=== PATIENT | female | born 2000 | race Caucasian/White ===

== ENCOUNTER 2022-05-01 10:21 | Emergency (ER) | payer OTHER ==
[2022-05-01 10:44] VITALS: BP 141/94
[2022-05-01] MEDS ORDERED: ONDANSETRON ODT 4 MG TABLET TL STA (11:27)
[2022-05-01] MEDS ORDERED: ACETAMINOPHEN 325 MG TABLET PO STA (11:35)
--- NOTE | 2022-05-01 11:46 | ED Physician Documentation ---
PD HPI URI - Stated complaint Stated Complaint: FEVER/VOMITING/HEAD PX - Chief complaint Chief Complaint: Resp - History obtained from History obtained from: Patient - History of Present Illness Timing - onset: How many days ago (2) Timing duration: Days (2) Timing details: Gradual onset Pain level max: 5 Pain level now: 5 Associated symptoms: Fever, Chills, Nasal congestion, Rhinorrhea, Dry cough Contributing factors: Sick contact (Has been sick with same) - Additional information Additional information: 21-year-old female has been sick for the past 2 to 3 days. She states that she has had fever, cough, congestion as well as vomiting. Unable to tolerate p.o. at home. Has a headache as well. has been sick with same. No urinary symptoms. Denies any possibility of . Taking NyQuil at home. Review of Systems Ten Systems: 10 systems reviewed and negative Constitutional: reports: Fever, Chills Respiratory: reports: Cough GI: reports: Nausea, Vomiting. denies: Abdominal Pain, Diarrhea, Hematemesis, Bloody / black stool : denies: Dysuria, Frequency, Hesitancy, Now EGA Skin: denies: Rash Musculoskeletal: denies: Neck pain, Back pain Neurologic: reports: Headache (Gradual onset, holoacranial) PD PAST MEDICAL HISTORY - Past Medical History Past Medical History: No - Past Surgical History Past Surgical History: No - Present Medications Home Medications: Ambulatory Orders Medication Instructions Recorded Confirmed Ondansetron Odt [Zofran] 4 mg TL Q6H PRN #10 tablet 05/01/22 Promethazine [Phenergan] 25 mg PO Q6H PRN #10 tab 05/01/22 - Allergies Allergies/Adverse Reactions: Allergies Allergy/AdvReac Type Severity Reaction Status Date / Time No Known Drug Allergies Allergy Verified 05/01/22 10:44 - Social History Does the pt smoke?: No Does the pt have substance abuse?: No - Family History Family history: reports: Non contributory PD ED PE NORMAL - Vitals Vital signs reviewed: Yes - General General: Alert and oriented X 3, No acute distress, Well developed/nourished - HEENT HEENT: Ears normal, Moist mucous membranes, Pharynx benign - Neck Neck: Supple, no meningeal sign - Cardiac Cardiac: RRR, Strong equal pulses - Respiratory Respiratory: No respiratory distress, Clear bilaterally - Abdomen Abdomen: Soft, Non tender, Non distended - Back Back: No CVA TTP, No spinal TTP - Derm Derm: Warm and dry, No rash - Extremities Extremities: No edema - Neuro Neuro: Alert and oriented X 3 - Psych Psych: Normal mood, Normal affect Results - Vitals Vitals: Vital Signs - 24 hr 05/01/22 10:40 Temperature 36.2 C L Heart Rate 127 H Respiratory 18 Rate Blood Pressure 141/94 H O2 Saturation 96 Oxygen O2 Source Room air - Labs Labs: Laboratory Tests 05/01/22 10:44 Nasal Adenovirus (PCR) NOT DETECTED Nasal B. parapertussis DNA (PCR) NOT DETECTED Nasal Coronavir 229E PCR NOT DETECTED Nasal Coronavir HKU1 PCR NOT DETECTED Nasal Coronavir NL63 PCR NOT DETECTED Nasal Coronavir OC43 PCR NOT DETECTED Nasal Enterovir/Rhinovir PCR NOT DETECTED Nasal Influenza A H3 PCR DETECTED A Nasal Influenza B PCR NOT DETECTED Nasal Parainfluen 1 PCR NOT DETECTED Nasal Parainfluen 2 PCR NOT DETECTED Nasal Parainfluen 3 PCR NOT DETECTED Nasal Parainfluen 4 PCR NOT DETECTED Nasal RSV (PCR) NOT DETECTED Nasal B.pertussis DNA PCR NOT DETECTED Nasal C.pneumoniae (PCR) NOT DETECTED Kit Human Metapneumo PCR NOT DETECTED Nasal M.pneumoniae (PCR) NOT DETECTED Nasal SARS-CoV-2 (PCR) NOT DETECTED PD MEDICAL DECISION MAKING - ED course Complexity details: reviewed results, re-evaluated patient, considered differential, d/w patient ED course: 21-year-old female presents to the emergency department with cough, congestion, body aches and fever. Has nausea and vomiting as well. Positive for influenza A. Partner sick with same. Given Zofran and is tolerating p.o. without difficulty. Patient is well-appearing, nontoxic. We will continue supportive care. Patient has been sick with symptoms greater than 48 hours, therefore not a candidate for Tamiflu or Xofluza Patient counseled regarding signs and symptoms for which I believe and urgent re-evaluation would be necessary. Patient with good understanding of and agreement to plan and is comfortable going home at this time This document was made in part using voice recognition software. While efforts are made to proofread this document, sound alike and grammatical errors may occur. Departure - Departure Disposition: 01 Home, Self Care Clinical Impression: Influenza A Condition: Good Instructions: ED Flu Follow-Up: Your,doctor in 1 week [Other] Prescriptions: Promethazine [Phenergan] 25 mg PO Q6H PRN #10 tab PRN Reason: Nausea / Vomiting Ondansetron Odt [Zofran] 4 mg TL Q6H PRN #10 tablet PRN Reason: Nausea / Vomiting Comments: Please follow-up with your doctor for further care. You have tested positive for influenza A today. Your prescriptions were sent to [facility] in [place]. Drink plenty of fluids. You can use Motrin or Tylenol as needed for fevers and/or body aches. Forms: Activity restrictions Discharge Date/Time: 05/01/22 12:37
[2022-05-01 11:54] LABS: CORONAVIRUS 229E-RESP PCR NOT DETECTED; CORONAVIRUS HKU1-RESP PCR NOT DETECTED; CORONAVIRUS NL63-RESP PCR NOT DETECTED; CORONAVIRUS OC43-RESP PCR NOT DETECTED; HUMAN METAPNEUMOVIRUS NOT DETECTED; INFLUENZA A H3- RESP PCR PANEL DETECTED; RHINOVIRUS/ENTEROVIRUS NOT DETECTED; SARS-CoV-2 -RESP PCR PANEL NOT DETECTED
[2022-05-01 11:55] LABS: B. PARAPERTUSSIS- RESP PCR PAN NOT DETECTED; B. PERTUSSIS- RESP PCR PANEL NOT DETECTED; C. PNEUMONIAE- RESP PCR PANEL NOT DETECTED; INFLUENZA B - RESP PCR PANEL NOT DETECTED; M. PNEUMONIAE- RESP PCR PANEL NOT DETECTED; PARAINFLUENZA VIRUS 1 NOT DETECTED; PARAINFLUENZA VIRUS 2 NOT DETECTED; PARAINFLUENZA VIRUS 3 NOT DETECTED; PARAINFLUENZA VIRUS 4 NOT DETECTED; RSV- RESP PCR PANEL NOT DETECTED
== END 2022-05-01 12:37 | disposition home or self-care (01) ==
LOC: ED 10:21
DX: J10.1 Influenza due to other identified influenza virus with other respiratory manifestations (principal); Z20.822 Contact with and (suspected) exposure to COVID-19
CPT/HCPCS: 87633; 99282; 99283; A9270; Q0162

== ENCOUNTER 2022-11-24 18:55 | Emergency (ER) | payer OTHER ==
[2022-11-24 19:19] LABS: BASOPHILS % (AUTO) 0.2 %; EOSINOPHILS # (AUTO) 0.1 10^3/uL (0.0-0.7); EOSINOPHILS % (AUTO) 0.8 %; HCT - HEMATOCRIT 40.9 % (37.0-47.0); HGB - HEMOGLOBIN 13.3 g/dL (12.0-16.0); LYMPHOCYTES # (AUTO) 2.2 10^3/uL (1.5-3.5); LYMPHOCYTES % (AUTO) 35.9 %; MEAN CORPUSCULAR HEMOGLOBIN 27.3 pg (27.0-31.0); MEAN CORPUSCULAR HGB CONC 32.5 g/dL (32.0-36.0); MEAN CORPUSCULAR VOLUME 83.8 fL (81.0-99.0); MEAN PLATELET VOLUME 8.9 fL (7.9-10.8); MONOCYTES # (AUTO) 0.8 10^3/uL (0.0-1.0); MONOCYTES % (AUTO) 12.4 %; NEUTROPHILS # (AUTO) 3.1 10^3/uL (1.5-6.6); NEUTROPHILS % (AUTO) 50.2 %; PLT - PLATELET COUNT 317 10^3/uL (130-450); RED BLOOD COUNT 4.88 10^6/uL (4.20-5.40); WHITE BLOOD COUNT 6.1 x10^3/uL (4.8-10.8)
[2022-11-24 19:26] LABS: BILIRUBIN,URINE NEGATIVE (NEGATIVE); GLUCOSE, URINE (UA) NEGATIVE (NEGATIVE); KETONES,URINE (UA) NEGATIVE (NEGATIVE); LEUKOCYTE ESTERASE, URINE SMALL (NEGATIVE); NITRITE,URINE POSITIVE (NEGATIVE); OCCULT BLOOD,URINE SMALL (NEGATIVE); PROTEIN,URINE NEGATIVE (NEGATIVE); UROBILINOGEN,URINE 0.2 (NORMAL) E.U./dL (NORMAL)
[2022-11-24 19:30] LABS: ALBUMIN 3.1 g/dL (3.2-5.5); ALBUMIN/GLOBULIN RATIO 0.8 (1.0-2.2); BILIRUBIN,TOTAL 0.2 mg/dL (0.2-1.0); CALCIUM 8.8 mg/dL (8.5-10.3); CREATININE 0.5 mg/dL (0.4-1.0); POTASSIUM 3.7 mmol/L (3.5-5.0); TOTAL PROTEIN 7.2 g/dL (6.7-8.2)
[2022-11-24 19:31] LABS: CLARITY,URINE HAZY (CLEAR)
[2022-11-24 19:43] LABS: BACTERIA,URINE Moderate /HPF (None Seen); RBC,URINE 0-5 /HPF (0-5); SQUAMOUS EPITHELIAL CELL,UR MANY Squamous (<= Few); YEAST,URINE PRESENT
--- NOTE | 2022-11-24 19:49 | ED Physician Documentation ---
History of Present Illness - Stated complaint Stated Complaint: HEAD PX/FEVER - Chief complaint Chief Complaint: Fever - History obtained from History obtained from: Patient, Family - History of Present Illness Timing: How many days ago (2) Pain level max: 5 Pain level now: 5 - Additonal information Additional information: 22-year-old female approximately 16 weeks presents to the emergency department with 3 days worth of intermittent fevers. Patient states that she has a history of migraines and had a headache earlier that felt like a migraine. Did not resolve with Tylenol. She has not had a cough. The headache was gradual in onset, holoacranial. Similar to prior migraines. No cough. She has had a rhinitis since she became . No urinary symptoms. No vaginal bleeding or discharge. No abdominal pain. Did have emesis x1. She is seen by OB at [facility]. She states that she has had high blood pressure and was supposed to start on a baby aspirin but has not done this yet. Review of Systems Constitutional: reports: Fever Nose: reports: Rhinorrhea / runny nose (Chronic for the past several months) Respiratory: denies: Cough GI: denies: Abdominal Pain, Constipation, Diarrhea : denies: Dysuria, Frequency, Hesitancy Skin: denies: Rash Musculoskeletal: denies: Neck pain, Back pain Neurologic: denies: Focal weakness, Numbness, Confused, LOC PD PAST MEDICAL HISTORY - Past Medical History Past Medical History: Yes Neuro: Migraines - Past Surgical History Past Surgical History: No - Present Medications Home Medications: Ambulatory Orders Medication Instructions Recorded Confirmed Ondansetron Odt [Zofran] 4 mg TL Q6H PRN #10 tablet 05/01/22 Promethazine [Phenergan] 25 mg PO Q6H PRN #10 tab 05/01/22 Cefpodoxime Proxetil [Vantin] 100 mg PO Q12H #20 tablet 11/24/22 Labetalol [Trandate] 100 mg PO BID #60 tablet 11/24/22 - Allergies Allergies/Adverse Reactions: Allergies Allergy/AdvReac Type Severity Reaction Status Date / Time No Known Drug Allergies Allergy Verified 11/24/22 18:58 - Living Situation Living Situation: reports: With family Living Arrangement: reports: At home - Social History Does the pt smoke?: No Does the pt have substance abuse?: No PD ED PE NORMAL - Vitals Vital signs reviewed: Yes - General General: Alert and oriented X 3, No acute distress, Well developed/nourished - HEENT HEENT: PERRL, Ears normal, Moist mucous membranes, Pharynx benign - Neck Neck: Supple, no meningeal sign - Cardiac Cardiac: RRR, Strong equal pulses - Respiratory Respiratory: No respiratory distress, Clear bilaterally - Abdomen Abdomen: Soft, Non tender, Non distended - Back Back: No CVA TTP, No spinal TTP - Derm Derm: Warm and dry, No rash - Extremities Extremities: No edema, No calf tenderness / cord - Neuro Neuro: Alert and oriented X 3 - Psych Psych: Normal mood, Normal affect Results - Vitals Vitals: Vital Signs - 24 hr 11/24/22 11/24/22 11/24/22 18:59 19:26 19:58 Temperature 36.9 C Heart Rate 112 H 97 96 Respiratory 18 16 16 Rate Blood Pressure 146/97 H 130/93 H 134/88 H O2 Saturation 99 100 100 11/24/22 11/24/22 21:35 21:46 Temperature 37.2 C 37.2 C Heart Rate 97 97 Respiratory 16 16 Rate Blood Pressure 138/91 H 138/91 H O2 Saturation 100 100 Oxygen O2 Source Room air - Labs Labs: Laboratory Tests 11/24/22 11/24/22 11/24/22 19:11 19:13 19:13 WBC 6.1 RBC 4.88 Hgb 13.3 Hct 40.9 MCV 83.8 MCH 27.3 MCHC 32.5 RDW 15.0 Plt Count 317 MPV 8.9 Neut # (Auto) 3.1 Lymph # (Auto) 2.2 Fleming # (Auto) 0.8 Eos # (Auto) 0.1 Baso # (Auto) 0.0 Absolute Nucleated RBC 0.00 Nucleated RBC % 0.0 Sodium 133 L Potassium 3.7 Chloride 105 Carbon Dioxide 22 Anion Gap 6.0 BUN 7 Creatinine 0.5 Estimated GFR (MDRD) 153 Glucose 88 Calcium 8.8 Total Bilirubin 0.2 AST 19 ALT 19 Alkaline Phosphatase 53 Total Protein 7.2 Albumin 3.1 L Globulin 4.1 Albumin/Globulin Ratio 0.8 L Urine Color Urine Clarity Urine pH Ur Specific [place] Urine Protein Urine Glucose (UA) Urine Ketones Urine Occult Blood Urine Nitrite Urine Bilirubin Urine Urobilinogen Ur Leukocyte Esterase Urine RBC Urine WBC Ur Squamous Epith Cells Urine Bacteria Urine Yeast Ur Microscopic Review Urine Culture Comments Nasal Adenovirus (PCR) NOT DETECTED Nasal B. parapertussis DNA (PCR) NOT DETECTED Nasal Coronavir 229E PCR NOT DETECTED Nasal Coronavir HKU1 PCR NOT DETECTED Nasal Coronavir NL63 PCR NOT DETECTED Nasal Coronavir OC43 PCR NOT DETECTED Nasal Enterovir/Rhinovir PCR NOT DETECTED Nasal Influenza B PCR NOT DETECTED Nasal Influenza A PCR NOT DETECTED Nasal Parainfluen 1 PCR NOT DETECTED Nasal Parainfluen 2 PCR NOT DETECTED Nasal Parainfluen 3 PCR NOT DETECTED Nasal Parainfluen 4 PCR NOT DETECTED Nasal RSV (PCR) NOT DETECTED Nasal B.pertussis DNA PCR NOT DETECTED Nasal C.pneumoniae (PCR) NOT DETECTED Kit Human Metapneumo PCR NOT DETECTED Nasal M.pneumoniae (PCR) NOT DETECTED Nasal SARS-CoV-2 (PCR) NOT DETECTED 11/24/22 19:13 WBC RBC Hgb Hct MCV MCH MCHC RDW Plt Count MPV Neut # (Auto) Lymph # (Auto) Fleming # (Auto) Eos # (Auto) Baso # (Auto) Absolute Nucleated RBC Nucleated RBC % Sodium Potassium Chloride Carbon Dioxide Anion Gap BUN Creatinine Estimated GFR (MDRD) Glucose Calcium Total Bilirubin AST ALT Alkaline Phosphatase Total Protein Albumin Globulin Albumin/Globulin Ratio Urine Color YELLOW Urine Clarity HAZY Urine pH 6.0 Ur Specific [place] 1.020 Urine Protein NEGATIVE Urine Glucose (UA) NEGATIVE Urine Ketones NEGATIVE Urine Occult Blood SMALL H Urine Nitrite POSITIVE H Urine Bilirubin NEGATIVE Urine Urobilinogen 0.2 (NORMAL) Ur Leukocyte Esterase SMALL H Urine RBC 0-5 Urine WBC 6-10 H Ur Squamous Epith Cells MANY Squamous H Urine Bacteria Moderate H Urine Yeast PRESENT Ur Microscopic Review INDICATED Urine Culture Comments NOT INDICATED Nasal Adenovirus (PCR) Nasal B. parapertussis DNA (PCR) Nasal Coronavir 229E PCR Nasal Coronavir HKU1 PCR Nasal Coronavir NL63 PCR Nasal Coronavir OC43 PCR Nasal Enterovir/Rhinovir PCR Nasal Influenza B PCR Nasal Influenza A PCR Nasal Parainfluen 1 PCR Nasal Parainfluen 2 PCR Nasal Parainfluen 3 PCR Nasal Parainfluen 4 PCR Nasal RSV (PCR) Nasal B.pertussis DNA PCR Nasal C.pneumoniae (PCR) Kti Human Metapneumo PCR Nasal M.pneumoniae (PCR) Nasal SARS-CoV-2 (PCR) PD Medical Decision Making - ED course Complexity details: reviewed results, re-evaluated patient, considered differential, d/w patient, d/w family, d/w farm consultant ED course: Patient is very well-appearing, nontoxic. Afebrile here. Blood pressure did decrease in the emergency department. No proteinuria. Her urinalysis is consistent with an infection, possible Pyelonephritis, though she does not have CVA tenderness. Normal white blood cell count. I discussed the case with Dr. Landeros, OB on-call for her OB. Recommend starting labetalol 100 mg p.o. twice daily. We will also place the patient on cefpodoxime for the UTI/early pyelonephritis. No evidence of sepsis. Headache feels much better after Fioricet. Headache is similar to her chronic migraines. Patient is ambulating without difficulty. No focal neurological deficits. Patient and family counseled regarding signs and symptoms for which I believe and urgent re- evaluation would be necessary. Patient with good understanding of and agreement to plan and is comfortable going home at this time This document was made in part using voice recognition software. While efforts are made to proofread this document, sound alike and grammatical errors may occur. Bedside ultrasound reveals an IUP with good movement and heart rate of approximately 154 bpm. Images were shown to the patient. Departure - Departure Disposition: 01 Home, Self Care Clinical Impression: Fever Qualifiers: Fever type: unspecified Qualified Code(s): R50.9 - Fever, unspecified induced hypertension Qualifiers: Trimester: unspecified trimester Qualified Code(s): O13.9 - Gestational [-induced] hypertension without significant proteinuria, unspecified trimester Pyelonephritis affecting Qualifiers: Trimester: unspecified trimester Qualified Code(s): O23.00 - Infections of kidney in , unspecified trimester Migraine Qualifiers: Migraine type: unspecified Status migrainosus presence: without status migrainosus Intractability: not intractable Qualified Code(s): G43.909 - Migraine, unspecified, not intractable, without status migrainosus Condition: Good Instructions: ED Fever Unconf Cause, ED Kidney Infec Female Follow-Up: MILVIA RICO MD [Primary Care Provider] - Within 3 Days Prescriptions: Labetalol [Trandate] 100 mg PO BID #60 tablet Cefpodoxime Proxetil [Vantin] 100 mg PO Q12H #20 tablet Comments: Please follow up with your doctor for further care. we have given you rocsharri komal for a urinary tract infection and possible kidney infection. We are also starting you on labetalol for your blood pressure. I spoke with Dr. Dl sauceda. [facility] in [place]. You were also given Fioricet for your migraine headache. Discharge Date/Time: 11/24/22 21:45
[2022-11-24] MEDS ORDERED: cefTRIAXone 1 GM VIAL IVP STA (20:11)
[2022-11-24 20:17] LABS: B. PARAPERTUSSIS- RESP PCR PAN NOT DETECTED; B. PERTUSSIS- RESP PCR PANEL NOT DETECTED; C. PNEUMONIAE- RESP PCR PANEL NOT DETECTED; CORONAVIRUS 229E-RESP PCR NOT DETECTED; CORONAVIRUS HKU1-RESP PCR NOT DETECTED; CORONAVIRUS NL63-RESP PCR NOT DETECTED; CORONAVIRUS OC43-RESP PCR NOT DETECTED; HUMAN METAPNEUMOVIRUS NOT DETECTED; INFLUENZA A- RESP PCR PANEL NOT DETECTED; INFLUENZA B - RESP PCR PANEL NOT DETECTED; M. PNEUMONIAE- RESP PCR PANEL NOT DETECTED; PARAINFLUENZA VIRUS 1 NOT DETECTED; PARAINFLUENZA VIRUS 2 NOT DETECTED; PARAINFLUENZA VIRUS 3 NOT DETECTED; PARAINFLUENZA VIRUS 4 NOT DETECTED; RHINOVIRUS/ENTEROVIRUS NOT DETECTED; RSV- RESP PCR PANEL NOT DETECTED; SARS-CoV-2 -RESP PCR PANEL NOT DETECTED
[2022-11-24] MEDS ORDERED: LABETALOL 100 MG TABLET PO STA (21:05)
[2022-11-24] MEDS ORDERED: BUTALB/ACETAM/CAFF 50/325/40MG TABLET PO STA (21:05)
[2022-11-24 21:37] VITALS: BP 138/91
== END 2022-11-24 21:45 | disposition home or self-care (01) ==
LOC: ED 18:55
DX: O99.352 Diseases of the nervous system complicating pregnancy, second trimester (principal); G43.909 Migraine, unspecified, not intractable, without status migrainosus; Z3A.16 16 weeks gestation of pregnancy
CPT/HCPCS: 36415; 80053; 81001; 85025; 87633; 96374; 99283; 99284; A9270; 81003; 87086

== ENCOUNTER 2023-01-20 01:08 | Observation (INO) | payer OTHER ==
[2023-01-20 03:43] LABS: BASOPHILS % (AUTO) 0.2 %; EOSINOPHILS % (AUTO) 0.3 %; HCT - HEMATOCRIT 38.3 % (37.0-47.0); HGB - HEMOGLOBIN 12.3 g/dL (12.0-16.0); LYMPHOCYTES # (AUTO) 3.1 10^3/uL (1.5-3.5); LYMPHOCYTES % (AUTO) 25.5 %; MEAN CORPUSCULAR HEMOGLOBIN 27.5 pg (27.0-31.0); MEAN CORPUSCULAR HGB CONC 32.1 g/dL (32.0-36.0); MEAN CORPUSCULAR VOLUME 85.5 fL (81.0-99.0); MEAN PLATELET VOLUME 9.2 fL (7.9-10.8); MONOCYTES # (AUTO) 0.8 10^3/uL (0.0-1.0); MONOCYTES % (AUTO) 6.4 %; NEUTROPHILS # (AUTO) 8.2 10^3/uL (1.5-6.6); NEUTROPHILS % (AUTO) 67.2 %; PLT - PLATELET COUNT 352 10^3/uL (130-450); RED BLOOD COUNT 4.48 10^6/uL (4.20-5.40); RED CELL DISTRIBUTION WIDTH 15.7 % (12.0-15.0); WHITE BLOOD COUNT 12.1 x10^3/uL (4.8-10.8)
[2023-01-20 03:58] LABS: ALBUMIN 3.7 g/dL (3.2-5.5); ALBUMIN/GLOBULIN RATIO 1.1 (1.0-2.2); BILIRUBIN,TOTAL 0.4 mg/dL (0.2-1.0); CALCIUM 9.1 mg/dL (8.5-10.3); CREATININE 0.5 mg/dL (0.6-1.3); POTASSIUM 3.4 mmol/L (3.5-4.5); TOTAL PROTEIN 7.2 g/dL (6.4-8.9)
--- NOTE | 2023-01-20 04:11 | ED Physician Documentation ---
History of Present Illness - Stated complaint Stated Complaint: HIGH BP, DIZZY - Chief complaint Chief Complaint: Cardiac - History obtained from History obtained from: Patient - Additonal information Additional information: HPI from patient. Patient is 24 weeks (primagravida). Patient says she has had US in this . She presents due to episodic lightheadedness, generalized weakness, feeling like she might pass out. These episodes have been occurring over past few days without specific inciting circumstances nor exacerbating factors but improves when she sits/lies down. During the day today she began measuring her blood pressure and had multiple readings throughout the day that were high (highest SBP 160s, highest DBP 120s). She has rx for labetalol which she says she is supposed to take BID but she has been taking intermittently due to side effects (drowsiness). She last took a dose of the labetalol around noon today. Note that this rx was provided 11/24/22 by [facility] ED provider when she was evaluated here and found to have hypertensive blood pressures. She denies CARMONA, visual changes, abdominal pain, vaginal bleeding, edema. Review of Systems Eyes: reports: Reviewed and negative Cardiac: reports: Reviewed and negative Respiratory: reports: Reviewed and negative GI: reports: Reviewed and negative Neurologic: denies: Headache PD PAST MEDICAL HISTORY - Past Medical History Neuro: Migraines - Past Surgical History Past Surgical History: No - Present Medications Home Medications: Ambulatory Orders Medication Instructions Recorded Confirmed Labetalol [Trandate] 100 mg PO BID #60 tablet 11/24/22 01/20/23 Aspirin [Aspirin EC] 81 mg PO DAILY 01/20/23 01/20/23 NIFEdipine [Nifedipine ER] 30 mg PO DAILY #30 tab 01/20/23 Vit No.129/Iron/Folic 1 each PO DAILY 01/20/23 01/20/23 [ Tablet] - Allergies Allergies/Adverse Reactions: Allergies Allergy/AdvReac Type Severity Reaction Status Date / Time No Known Drug Allergies Allergy Verified 01/20/23 01:30 - Social History Does the pt smoke?: No Does the pt have substance abuse?: No PD ED PE NORMAL - Vitals Vital signs reviewed: Yes - General General: Alert and oriented X 3, No acute distress, Well developed/nourished - Cardiac Cardiac: RRR, No murmur - Respiratory Respiratory: No respiratory distress, Clear bilaterally - Abdomen Abdomen: Soft, Non tender - Extremities Extremities: No edema - Neuro Neuro: Alert and oriented X 3, Normal speech Eye Opening: Spontaneous Motor: Obeys Commands Verbal: Oriented GCS Score: 15 Results - Vitals Vitals: Vital Signs - 24 hr 01/20/23 01/20/23 01/20/23 01:25 01:34 03:27 Temperature 36.7 C Heart Rate 108 H 111 H 98 Respiratory 18 16 16 Rate Blood Pressure 145/104 H 146/106 H 156/103 H O2 Saturation 98 97 99 01/20/23 01/20/23 01/20/23 03:30 04:00 04:30 Temperature Heart Rate 98 99 103 H Respiratory 18 17 18 Rate Blood Pressure 160/97 H 147/93 H 166/115 H O2 Saturation 99 98 100 01/20/23 01/20/23 01/20/23 05:00 05:30 06:10 Temperature Heart Rate 98 106 H 101 H Respiratory 18 18 16 Rate Blood Pressure 164/111 H 159/110 H 155/110 H O2 Saturation 98 99 97 01/20/23 01/20/23 01/20/23 06:31 07:00 07:47 Temperature Heart Rate 101 H 108 H 104 H Respiratory 18 16 20 Rate Blood Pressure 166/112 H 157/89 H 147/108 H O2 Saturation 99 98 99 01/20/23 08:42 Temperature Heart Rate 101 H Respiratory 20 Rate Blood Pressure 161/117 H O2 Saturation 100 Oxygen O2 Source Room air - Labs Labs: Laboratory Tests 01/20/23 01/20/23 01/20/23 03:32 03:32 04:20 WBC 12.1 H RBC 4.48 Hgb 12.3 Hct 38.3 MCV 85.5 MCH 27.5 MCHC 32.1 RDW 15.7 H Plt Count 352 MPV 9.2 Neut # (Auto) 8.2 H Lymph # (Auto) 3.1 Wilkin # (Auto) 0.8 Eos # (Auto) 0.0 Baso # (Auto) 0.0 Absolute Nucleated RBC 0.00 Nucleated RBC % 0.0 Sodium 134 L Potassium 3.4 L Chloride 105 Carbon Dioxide 20 L Anion Gap 9.0 BUN 8 Creatinine 0.5 L Estimated GFR (MDRD) 153 Glucose 92 Calcium 9.1 Total Bilirubin 0.4 AST 15 ALT 19 Alkaline Phosphatase 66 Total Protein 7.2 Albumin 3.7 Globulin 3.5 Albumin/Globulin Ratio 1.1 Lipase 13 Beta HCG, Quant 2542.8 Urine Color YELLOW Urine Clarity SL. CLOUDY Urine pH 5.5 Ur Specific Jeffrey >=1.030 H Urine Protein TRACE Urine Glucose (UA) NEGATIVE Urine Ketones NEGATIVE Urine Occult Blood NEGATIVE Urine Nitrite NEGATIVE Urine Bilirubin NEGATIVE Urine Urobilinogen 0.2 (NORMAL) Ur Leukocyte Esterase TRACE H Urine RBC 0-5 Urine WBC 0-3 Ur Squamous Epith Cells MOD Squamous H Amorphous Sediment Few Urine Bacteria Few Urine Mucus Few Strands Ur Microscopic Review INDICATED Urine Culture Comments NOT INDICATED Urine Creatinine Ur Total Protein Timed Protein/Creatinin Ratio 01/20/23 04:20 WBC RBC Hgb Hct MCV MCH MCHC RDW Plt Count MPV Neut # (Auto) Lymph # (Auto) Wilkin # (Auto) Eos # (Auto) Baso # (Auto) Absolute Nucleated RBC Nucleated RBC % Sodium Potassium Chloride Carbon Dioxide Anion Gap BUN Creatinine Estimated GFR (MDRD) Glucose Calcium Total Bilirubin AST ALT Alkaline Phosphatase Total Protein Albumin Globulin Albumin/Globulin Ratio Lipase Beta HCG, Quant Urine Color Urine Clarity Urine pH Ur Specific [place] Urine Protein Urine Glucose (UA) Urine Ketones Urine Occult Blood Urine Nitrite Urine Bilirubin Urine Urobilinogen Ur Leukocyte Esterase Urine RBC Urine WBC Ur Squamous Epith Cells Amorphous Sediment Urine Bacteria Urine Mucus Ur Microscopic Review Urine Culture Comments Urine Creatinine 321.8 Ur Total Protein Timed 15 Protein/Creatinin Ratio 0.0 PD Medical Decision Making - ED course Complexity details: reviewed results, re-evaluated patient, considered differential, d/w patient ED course: Persistent high blood pressures during most of ED stay with systolic blood pressures 140s-160s, diastolic 90s-110s. She is asymptomatic during ED stay but describes episodic lightheadedness and rapid palpitations over past few days, increasing in frequency, with high blood pressure readings at home with home BP cuff. No concerning findings on CBC (minimal leukocytosis noted, wbc 12.1), ER abdominal panel (sodium 134, potassium 3.4). I discussed this case with Dr. Felton (on-call black oxide coating equipment tender for [facility]), recommends 10mg nifedipine now and recheck BPs before considering disposition to ensure adequate improvement in blood pressures. If adequately improved (DBP less than 100), can consider d/c home with rx for nifedipine xr 30mg QD to be taken instead of the labetalol. Patient updated on this plan and she is agreeable. Patient requesting discharge after the nifedipine was given and had adequate time for effect, BP 157/89. She expresses understanding of need to follow up as soon as she can arrange with her black oxide coating equipment tender, the need to fill the rx for the nifedipine and take on a consistent basis, and return precautions (including concerning symptoms, BP readings). Shortly after patients discharge instructions were printed, repeat BP is 147/108. At that point, Dr. Felton was in ED to reevaluate patient; she d/w patient recommendation to stay in [facility] for more aggressive treatment of her BP and ongoing monitoring for response to medications (plan to switch to IV medications for more aggressive treatment), and patient agrees with this. Departure - Departure Disposition: ED Place in Observation Clinical Impression: Qualifiers: Weeks of gestation: 24 weeks Qualified Code(s): Z3A.24 - 24 weeks gestation of induced hypertension Qualifiers: Trimester: second trimester Qualified Code(s): O13.2 - Gestational [- induced] hypertension without significant proteinuria, second trimester Condition: Good Discharge Date/Time: 01/20/23 09:12
[2023-01-20 05:36] LABS: BILIRUBIN,URINE NEGATIVE (NEGATIVE); GLUCOSE, URINE (UA) NEGATIVE (NEGATIVE); KETONES,URINE (UA) NEGATIVE (NEGATIVE); LEUKOCYTE ESTERASE, URINE TRACE (NEGATIVE); NITRITE,URINE NEGATIVE (NEGATIVE); OCCULT BLOOD,URINE NEGATIVE (NEGATIVE); PH,URINE 5.5 PH (5.0-7.5); PROTEIN,URINE TRACE mg/dL (NEGATIVE); UROBILINOGEN,URINE 0.2 (NORMAL) E.U./dL (NORMAL)
[2023-01-20 05:43] LABS: AMORPHOUS SEDIMENT,UR Few /LPF; BACTERIA,URINE Few /HPF (None Seen); CLARITY,URINE SL. CLOUDY (CLEAR); MUCUS,URINE Few Strands; RBC,URINE 0-5 /HPF (0-5); SQUAMOUS EPITHELIAL CELL,UR MOD Squamous (<= Few); WBC,URINE 0-3 /HPF (0-5)
[2023-01-20] MEDS ORDERED: NIFEdipine 10 MG CAPSULE PO STA (06:21)
[2023-01-20] MEDS ORDERED: NIFEdipine ER 30 MG TABLET PO STA (07:34)
[2023-01-20 07:39] LABS: CREATININE,URINE 321.8 mg/dL
[2023-01-20] MEDS ORDERED: LABETALOL 20 MG/4 ML SYRINGE IVP STA ×2 (08:28→08:41)
[2023-01-20] MEDS ORDERED: hydrALAZINE INJ 20 MG/ML VIAL IVP STA (08:43)
[2023-01-20] MEDS ORDERED: LABETALOL 20 MG/4 ML SYRINGE IVP ONE (08:50)
[2023-01-20] MEDS ORDERED: MAGNESIUM SULFATE 4 GRAM 4 GM/50 ML BAG IV ONE (08:53)
[2023-01-20] MEDS ORDERED: hydrALAZINE INJ 20 MG/ML VIAL IVP PRN ×2 (08:53)
[2023-01-20] MEDS ORDERED: NIFEdipine 10 MG CAPSULE PO PRN (08:53)
[2023-01-20] MEDS ORDERED: LABETALOL 20 MG/4 ML SYRINGE IVP PRN ×3 (08:53)
[2023-01-20] MEDS ORDERED: MAGNESIUM SULFATE IN WATER 20 GM/500 ML IV.SOLN IV SCH (09:00)
--- NOTE | 2023-01-20 10:26 | HISTORY & PHYSICAL EXAMINATION ---
Admit History - Visit Reason Visit Reason: Other (Severe hypertension) - HPI Vital Signs Temperature 98.1 F 01/20/23 01:25 Heart Rate 108 H 01/20/23 01:25 Respiratory Rate 18 01/20/23 01:25 Blood Pressure 145/104 H 01/20/23 01:25 O2 Saturation 98 01/20/23 01:25 Temperature 98.1 F 01/20/23 01:25 Heart Rate 101 H 01/20/23 08:42 Respiratory Rate 20 01/20/23 08:42 Blood Pressure 161/117 H 01/20/23 08:42 O2 Saturation 100 01/20/23 08:42 If not protocol: Oxygen Flow, liters/minute Meds/Allgy - Home Medications Home Medications: Ambulatory Orders Medication Instructions Recorded Confirmed Labetalol [Trandate] 100 mg PO BID #60 tablet 11/24/22 01/20/23 Aspirin [Aspirin EC] 81 mg PO DAILY 01/20/23 01/20/23 NIFEdipine [Nifedipine ER] 30 mg PO DAILY #30 tab 01/20/23 Vit No.129/Iron/Folic 1 each PO DAILY 01/20/23 01/20/23 [ Tablet] - Allergies Allergies/Adverse Reactions: Allergies Allergy/AdvReac Type Severity Reaction Status Date / Time No Known Drug Allergies Allergy Verified 01/20/23 01:30 Physical - Abdominal Exam Vital Signs: Temp Pulse Resp BP Pulse Ox O2 Flow Rate 98.1 F 101 H 20 161/117 H 100 01/20/23 01:25 01/20/23 08:42 01/20/23 08:42 01/20/23 08:42 01/20/23 08:42 Plan for Labor - Plan For Labor I expect patient to be DC'd or transferred within 96 hours.: Yes Plan for Labor: 22yo at 24.3w by LMP (consistent with at least 14w US) presented to ED with lightheadedness and high BP. She was diagnosed earlier second trimester with chronic hypertension. care at [facility]. Started on labetalol 50- 100mg qd but patient was not taking consistently due to side effects of fatigue and dizziness. No other OB concerns, good movement. BP in ED 155/110 and 166/112. She was then given nifedipine 10mg IR. BP improved to 157/89, 147/108. Nifedipine 30mg XR given. However on recheck BP 161/117. Total of labetalol 80mg IVP and hydralazine 10mg IVP given with improvement in severe range BP. Now 128/75. Will admit for hypertension control. NKDA Meds: vitamins, ASA, labetalol Med: migraines Surg:T&A Fam: hypertension Social: , AD deployed this week. Moving to [place], her parents are flying here now GEN: NAD CV: Tachycardic 100s Resp: no respiratory distress Abd: nt Ext: nt monitorins, moderate variability 22yo at 24.3w admitted for observation for chronic hypertension exacerbation - Admit for observation - Received labetalol 80mg total, hydralazine 10mg IVP - Nifedipine 10mg IR and 30mg XR this am - Plan oral regimen of nifedipine 30mg XR once or BID and possible labetalol 300mg BID-TID. Will reassess BP as she is normotensive now from hydralazine. - monitoring TID - Anticipate discharge tomorrow - Discussed with primary OB at , she will follow up there this week. Also reviewed case with .
[2023-01-20] MEDS ORDERED: diphenhydrAMINE 25 MG CAPSULE PO PRN ×2 (13:20→22:14)
[2023-01-20] MEDS ORDERED: METOCLOPRAMIDE 10 MG/2 ML VIAL IVP PRN (13:21)
[2023-01-20] MEDS: ACETAMINOPHEN 500 MG TABLET PO PRN ×2 (13:31→22:29)
[2023-01-20] MEDS ORDERED: LABETALOL 100 MG TABLET PO SCH (14:00)
--- NOTE | 2023-01-20 15:54 | Ultrasound Report ---
PROCEDURE: OB F/U or Repeat INDICATIONS: Severe chronic hypertension OUTSIDE/PRIOR DATING DATA: Last menstrual period (LMP): Unknown. LMP-based estimated date of delivery (CONY): Not applicable. First dating scan (date and location): 01/20/2023. Estimated date of delivery (CONY) from first dating scan: 05/10/2023. The below data below was generated using the ultrasound CONY of 05/10/2023 TECHNIQUE: Real-time scanning was performed of the fetus, with image documentation and biometric measurements. Endovaginal scanning: Not performed. COMPARISON: None available at the time of this dictation. FINDINGS: General: A single live intrauterine gestation is present. Presentation: Cephalic Placenta: Placental position is posterior, without previa. Amniotic fluid index: 15.2 cm, within normal limits for gestational age. Largest pocket: 4.2 cm heart rate: 147 beats per minute. Maternal cervical canal: 5.5 cm long; normal length is 2.5 cm or more. biometrics: Biparietal diameter: 5.9 cm equals 24 weeks 0 days Head circumference: 22.3 cm equals 24 weeks 2 da ys Abdominal circumference: 20.3 cm equals 24 weeks 6 days Femur length: 4.3 cm equals 24 weeks 1 day Estimated gestational age from initial scan: not applicable. Composite gestational age from present scan: 24 weeks 2 days Estimated weight and percentile: 703 g, 43rd percentile Measurement variability in biometric dating: +/- 10 days from 12-20 weeks gestation, +/- 2 weeks from 20-30 weeks gestation, +/- 3 weeks at 30 weeks gestation or more. Other: Not applicable. IMPRESSION: No significant abnormality can be seen on this OB ultrasound. Reviewed by: Dylan Melgoza MD on 01/20/2023 2:52 PM MITESH Approved by: Dylan Melgoza MD on 01/20/2023 2:52 PM MITESH Station ID: [id number]
[2023-01-20 17:48] LABS: BASOPHILS % (AUTO) 0.2 %; EOSINOPHILS % (AUTO) 0.3 %; HCT - HEMATOCRIT 35.5 % (37.0-47.0); HGB - HEMOGLOBIN 11.7 g/dL (12.0-16.0); LYMPHOCYTES # (AUTO) 2.7 10^3/uL (1.5-3.5); LYMPHOCYTES % (AUTO) 27.7 %; MEAN CORPUSCULAR HEMOGLOBIN 27.6 pg (27.0-31.0); MEAN CORPUSCULAR VOLUME 83.7 fL (81.0-99.0); MEAN PLATELET VOLUME 8.8 fL (7.9-10.8); MONOCYTES # (AUTO) 0.7 10^3/uL (0.0-1.0); MONOCYTES % (AUTO) 7.4 %; NEUTROPHILS # (AUTO) 6.3 10^3/uL (1.5-6.6); NEUTROPHILS % (AUTO) 64.1 %; PLT - PLATELET COUNT 363 10^3/uL (130-450); RED BLOOD COUNT 4.24 10^6/uL (4.20-5.40); WHITE BLOOD COUNT 9.8 x10^3/uL (4.8-10.8)
[2023-01-20 18:04] LABS: ALBUMIN 3.6 g/dL (3.2-5.5); ALBUMIN/GLOBULIN RATIO 1.1 (1.0-2.2); BILIRUBIN,TOTAL 0.4 mg/dL (0.2-1.0); CREATININE 0.4 mg/dL (0.6-1.3); POTASSIUM 3.6 mmol/L (3.5-4.5); TOTAL PROTEIN 6.9 g/dL (6.4-8.9)
--- NOTE | 2023-01-21 08:14 | Discharge Plan ---
Discharge Plan Problem Reviewed?: Yes Disposition: Home, Self Care Condition: Good Prescriptions: NIFEdipine [Nifedipine ER] 30 mg PO DAILY #30 tab Diet: Regular Activity Restrictions: Activity as Tolerated Shower Restrictions: No Driving Restrictions: No Weight Bearing: Full Weight Instruction Topics: ED Hypertension Conf Out Of Control Additional Instructions or Follow Up instructions: Your blood pressures were high during your ER stay. I consulted the deployment manager poultry boner (Dr. Felton). She recommends that you start taking a blood pressure medication (nifedepine) on a daily basis. This is to be taken instead of the labetolol; I have electronically submitted a prescription for the nifedipine to the [facility] pharmacy in [place]. Contact your ASSISTANT TECHNICIAN tomorrow morning to arrange for next available appointment for reevaluation. No Smoking: If you smoke, Please STOP! Call for help. Follow-up with: MILVIA RICO MD [Physician No Access] -
--- NOTE | 2023-01-21 08:20 | DISCHARGE SUMMARY ---
Discharge Summary Admit Date: 01/20/23 Discharge Date: 01/21/23 Discharging Provider: Kathleen Bangura Code Status: Attempt Resuscitation Condition at Discharge: Good Discharge Disposition: 01 Home, Self Care Discharge Facility Name: [facility] - DIAGNOSES Admission Diagnoses: Chronic hypertension exacerbation second trimester - HPI History of Present Illness: 22yo at 24.3w by LMP (consistent with at least 14w US) presented to ED with lightheadedness and high BP and severe range BP noted. She was diagnosed earlier second trimester with chronic hypertension. care at [facility]. Started on labetalol 50-100mg qd but patient was not taking consistently due to side effects of fatigue and dizziness. - HOSPITAL COURSE Hospital Course: 22yo at 24.3w by LMP (consistent with at least 14w US) presented to ED with lightheadedness and high BP. She was diagnosed earlier second trimester with chronic hypertension. care at [facility]. Started on labetalol 50- 100mg qd but patient was not taking consistently due to side effects of fatigue and dizziness. No other OB concerns, good movement. BP in ED 155/110 and 166/112. She was then given nifedipine 10mg IR. BP improved to 157/89, 147/108. Nifedipine 30mg XR given. However on recheck BP 161/117. Total of labetalol 80mg IVP and hydralazine 10mg IVP given with improvement in severe range BP. Now 128/75 and BP remained low/normal for 24 hours. No additional medications started. She did have a headache which resolved with Tylenol/Reglan/Benadryl. She was prescribed nifedipine 30mg XR if BP increases again. She will follow up at [facility] this week. She has a home BP cuff and will take daily. Hypertension/preeclampsia precautions reviewed. status was reassuring and growth scan obtained, report given to patient to bring to her OB. - ALLERGIES Allergies/Adverse Reactions: Allergies Allergy/AdvReac Type Severity Reaction Status Date / Time No Known Drug Allergies Allergy Verified 01/20/23 01:30 - MEDICATIONS Home Medications: Ambulatory Orders Medication Instructions Recorded Confirmed Labetalol [Trandate] 100 mg PO BID #60 tablet 11/24/22 01/20/23 Aspirin [Aspirin EC] 81 mg PO DAILY 01/20/23 01/20/23 NIFEdipine [Nifedipine ER] 30 mg PO DAILY #30 tab 01/20/23 Vit No.129/Iron/Folic 1 each PO DAILY 01/20/23 01/20/23 [ Tablet] - PHYSICAL EXAM AT DISCHARGE General Appearance: positive: No acute distress Eyes Bilateral: positive: EOMI Respiratory: positive: No respiratory distress Extremities: positive: Non-tender Neurologic/Psychiatric: positive: Oriented x3 - LABS Result Diagrams: 01/20/23 17:43 01/20/23 17:43 - QUALITY (Female Hip Fx Only) Was patient sent home on osteoporosis medication?: No - FOLLOW UP Follow Up: Follow up with this week at [facility]. - TIME SPENT Time Spent in Discharge (Minutes): 25
[2023-01-21 08:28] VITALS: BP 122/69; O2SAT 100
== END 2023-01-21 09:10 | disposition home or self-care (01) ==
LOC: ED 01:08 → FBP 08:56
PROVIDERS: ADMIT Obstetrics & Gynecology; ATTEND Obstetrics & Gynecology
DX: O13.2 Gestational [pregnancy-induced] hypertension without significant proteinuria, second trimester (principal); Z3A.24 24 weeks gestation of pregnancy; Z91.148 Patient's other noncompliance with medication regimen for other reason; Z79.82 Long term (current) use of aspirin; Z79.899 Other long term (current) drug therapy
CPT/HCPCS: 36415; 76816; 80053; 81001; 82570; 83690; 84156; 84702; 85025; 96374; 96375; 99285; A9270; G0378; J2765; 81003; 87086